=== PATIENT | male | born 1970 | race Caucasian/White ===

== ENCOUNTER 2018-06-16 09:08 | Emergency (ER) | payer OTHER ==
[2018-06-16 09:34] VITALS: BP 144/84; PULSE 80; TEMP 97.6; BMI 36.5
--- NOTE | 2018-06-16 09:43 | PDOC ---
Attending Attestation - Resident Resident Name: Ammy Paniagua - ED Attending Attestation I have performed the following: I have examined & evaluated the patient, The case was reviewed & discussed with the resident, I agree w/resident's findings & plan, Exceptions are as noted - HPI HPI: 06/16/18 09:55 48y M no pmhx presents sp fall 2 days ago from approx 5 feet, landing on his R shoulder/arm and R rib/flank pain. There was no head injury, loc, neck pain, back pain, numbness/tingling/weakness, leg pain, L arm pain. Pt statses his arm seems to hurt the most on the R shoulder and his R rib/flank area hurts when he mvoes/coughs. He denies any sob, fever/chills, n/v, abd pain. he has been taking OTC pain meds without significant improvement. He came in today as the pain did not seem to be getting any better after 2 days. GENERAL: The patient is awake, alert, and fully oriented, Nontoxic - in no acute distress. HEAD: Normocephalic, atraumatic. EYES: extraocular movements intact, sclera anicteric, conjunctiva clear. ENT: Normal voice, Moist mucous membranes. NECK: Normal range of motion, supple LUNGS: Breath sounds equal, clear to auscultation bilaterally. No wheezes, no rhonchi, no rales. HEART: Regular rate and rhythm, normal S1 and S2 without murmur, rub or gallop. ABDOMEN: Soft, nontender, No guarding, no rebound. . No CVA tenderness No ecchymosis noted to flank/abd/back. NEUROLOGICAL: No facial assymetry, Normal speech, PSYCH: Normal mood, normal affect. SKIN: Warm, Dry, normal turgor, Back: No midline tenderness to the cervical, thoracic or lumbar spine Musculoskelatal: normal passive ROM of his R shoulder/R elobw in all planes, + pain with AROM of his RUE. TTP to mid shaft R humerus. no focal tendernes to shoulder/elbow/forearm. No appreciable ecchymosis to extremity. FROM of hips, knees, ankles - No signs of ecchymosis, erythema, or crepitus noted on palpation extremities, chest wall, clavicals, ribs, back. - Physicial Exam PE: 06/16/18 10:55 see above - Medical Decision Making 06/16/18 10:54 xrays neg for fx of ribs/humers/shulder no signs of dislcoation possibel rotator cuff injury suspect rib contusion/arm contusion will give tramadol for pain will refer to PMD and ortho return precautions were discussed
--- NOTE | 2018-06-16 09:46 | PDOC ---
History of Present Illness - General Chief Complaint: Injury Stated Complaint: LEFT SHOULDER/ARM PAIN History Source: Patient - History of Present Illness Initial Comments: 06/16/18 09:40 48M w/ no significant pmhx presents today after a fall. Pt states this past Wednesday he was at work at the time on top of a generator when he slipped due to the wet surface because of the rain and fell 5 ft to the ground. Admits to landing on his R upper extremity and R side. Pt states he has only taken 2 of Ibuprofen with no relief. He complains of 9/10 pain in his RUE, with limited range of motion. He also admits to R anterior rib pain as a result from the fall. Denies head injury, loc, dizziness, lightheadedness, syncope, chest pain, sob, difficulty walking. PCP: Dr. Colin Past History - Past Medical History Allergies/Adverse Reactions: Allergies Allergy/AdvReac Type Severity Reaction Status Date / Time No Known Allergies Allergy Verified 06/16/18 09:15 Home Medications: Ambulatory Orders No Home Medications 0 dose .ROUTE UTDICT 02/13/13 Tramadol HCl 50 mg PO QID PRN #12 tablet MDD 4 06/16/18 CVA: No COPD: No Other medical history: LEFT SHOULDER FX - Suicide/Smoking/Psychosocial Hx Smoking Status: Yes Smoking History: Current every day smoker Years of Tobacco Use: 20 Number of Cigarettes Smoked Daily: 20 Information on smoking cessation initiated: Yes 'Breaking Loose' booklet given: 09/24/17 Hx Alcohol Use: Yes (SOCIAL) Drug/Substance Use Hx: No Substance Use Type: Alcohol Review of Systems - Review of Systems Able to Perform ROS?: Yes Is the patient limited Lithuanian proficient: No Constitutional: No: Chills, Fever HEENTM: No: Recent change in vision Respiratory: No: Shortness of Breath Cardiac (ROS): No: Chest Pain, Lightheadedness, Palpitations, Syncope, Chest Tightness ABD/GI: No: Constipated, Diarrhea : No: Dysuria, Flank Pain, Hematuria Musculoskeletal: Yes: Other (R anterior rib pain) Neurological: No: Headache, Numbness, Paresthesia, Tingling, Dizziness *Physical Exam - Vital Signs Last Vital Signs Temp Pulse Resp BP Pulse Ox 97.6 F 80 16 144/84 100 06/16/18 09:09 06/16/18 09:09 06/16/18 09:09 06/16/18 09:09 06/16/18 09:09 - Physical Exam Comments: 06/16/18 09:48 GEN: NAD. AAOx3. Resting comfortably, HEENT: AT/NC. WILL. EOMI. Moist mucus membranes. Lungs: CTA B/L. No wheezes noted. Heart: RRR. Normal S1, S2. No murmurs noted. Abd: Soft. Tender in RUQ. ND. +BS in all 4 Q's. MSK: No ecchymoses noted in posterior/anterior ribs. Ext: Limited active flexion and abduction in RUE. Tolerates passive ROM. No obvious deformities or ecchymoses in RUE. Neuro: Responds to commands. ED Treatment Course - Medications Given in the ED: ED Medications Discontinued Medications Generic Name Dose Route Start Last Admin Trade Name Freq PRN Reason Stop Dose Admin Oxycodone/Acetaminophen 2 combo 06/16/18 09:32 06/16/18 09:37 Percocet 5/325 - PO 06/16/18 09:33 2 combo ONCE ONE Administration Medical Decision Making - Medical Decision Making 06/16/18 09:52 48M w/ no significant pmhx presents with injury to his RUE s/p fall 2 days ago during work. -Pt has significant restriction of motion due to pain in the RUE as well as significant R rib tenderness. -Will obtain an Xray of the R shoulder and humerus. Will also get U/A to r/o possible trauma to kidney as he states he landed on his R side and is complaining of pain. 06/16/18 10:19 -U/A neg, unlikely renal trauma 06/16/18 10:31 -Xray of humerus, ribs, and shoulder unremarkable for fx. pending final read 06/16/18 11:56 -Xray of humerus, ribs, and shoulder neg on final read. -Will Rx Tramadol 50 mg for pain and recommend to take Tylenol and Advil as needed. Advised to follow up with PCP and ortho for further evaluation. Recommended to return to the ED if he has persistent pain, worsening abdominal pain, chest pain, shortness of breath. Case discussed with Dr. Knutson. -Ammy Paniagua, DO - PGY1 *DC/Admit/Observation/Transfer Diagnosis at time of Disposition: Muscle contusion Contusion of rib on right side Qualifiers: Encounter type: initial encounter Qualified Code(s): S20.211A - Contusion of right front wall of thorax, initial encounter - Discharge Dispostion Disposition: HOME Condition at time of disposition: Good Decision to Admit order: No - Prescriptions Prescriptions: Tramadol HCl 50 mg PO QID PRN #12 tablet MDD 4 PRN Reason: Pain - Referrals Referrals: Duong Colin MD [Primary Care Provider] - Miguel Cardenas [Non Staff, Medical] - - Patient Instructions Printed Discharge Instructions: How to Prevent Falls Additional Instructions: You were seen in the ED for complaints of right shoulder and rib pain after a fall. In the ED, x-ray imaging was done that did not show any acute pathologic fractures. There is no acute need for hospitalization at this time. You are being discharged home. Please follow up with your primary care physician, Dr. Colin, within 1 week. You can also make an appointment to see your orthopedic surgeon, Dr. Miguel Cardenas. Please take Tramadol 50 mg every 6 hours as needed for pain. You may also take [id number] Tylenol or Advil for pain. If you experience worsening right arm pain, new and persistent abdominal or flank pain, chest pain, or shortness of breath, please proceed to your nearest emergency room immediately. - Post Discharge Activity Forms/Work/School Notes: Back to Work
[2018-06-16 09:48] LABS: URINE APPEARANCE Clear; URINE BILIRUBIN Negative (NEGATIVE); URINE COLOR Yellow; URINE GLUCOSE (UA) Negative (NEGATIVE); URINE KETONE Negative (NEGATIVE); URINE LEUK ESTERASE Negative (NEGATIVE); URINE NITRITE Negative (NEGATIVE); URINE PROTEIN Negative (NEGATIVE); URINE UROBILINOGEN 0.2 (0.2-1.0)
[2018-06-16 10:17] LABS: EPI CELLS FEW /HPF; URINE BACTERIA NONE SEEN /hpf (NEGATIVE); URINE RBC 0-3 /hpf (0-3); URINE WBC 0-3 (0-2)
== END 2018-06-16 11:04 | disposition home or self-care (01) ==
LOC: FER 09:08
DX: S20.211A Contusion of right front wall of thorax, initial encounter (principal); T14.8XXA Other injury of unspecified body region, initial encounter; Y92.410 Unspecified street and highway as the place of occurrence of the external cause; F17.210 Nicotine dependence, cigarettes, uncomplicated; W17.89XA Other fall from one level to another, initial encounter; Y93.9 Activity, unspecified
CPT/HCPCS: 71101-TC-RT-FY; 73030-TC-RT-FY; 73060-TC-RT-FY; 81003; 81015; 99282-25

== ENCOUNTER 2020-06-24 17:46 | Emergency (ER) | payer BC | END 2020-06-24 17:51 | disposition home or self-care (01) | LOC: JVIRT 17:46 | DX: Z03.818 Encounter for observation for suspected exposure to other biological agents ruled out (principal); Z01.84 Encounter for antibody response examination | CPT/HCPCS: 36415; 86769; C9803; Q3014-GT; U0003 ==

== ENCOUNTER 2024-03-02 05:09 | Day surgery (SDC) | payer BC ==
[2024-03-01 07:41] VITALS: BMI 29.7
[2024-03-02 07:23] VITALS: RESP 18
[2024-03-02 08:41] VITALS: TEMP 97.6
[2024-03-02 09:46] LABS: BASO % 0.7 % (0-2.0); EOS % 1.5 % (0-4.5); HEMATOCRIT 34.9 % (35.4-49); HEMOGLOBIN 11.3 GM/dL (11.7-16.9); LYMPH % 28.8 % (8-40); MCH 26.1 pg (25.7-33.7); MCHC 32.2 g/dl (32.0-35.9); MEAN CELL VOLUME 80.9 fl (80-96); MONO % 6.1 % (3.8-10.2); NEUT % 62.9 % (42.8-82.8); PLATELET COUNT 271 10^3/uL (134-434); RBC 4.31 M/mm3 (4.00-5.60); WHITE BLOOD COUNT 8.8 K/mm3 (4.0-10.0)
[2024-03-02 10:02] VITALS: BP 132/72; PULSE 63
[2024-03-02 10:18] LABS: POTASSIUM 4.4 mmol/L (3.5-5.1)
[2024-03-02 10:23] LABS: CALCIUM 9.2 mg/dL (8.5-10.1)
[2024-03-02 10:24] LABS: ALBUMIN 3.6 g/dl (3.4-5.0); BLOOD UREA NITROGEN 10.2 mg/dL (7-18)
[2024-03-02 10:28] LABS: BILIRUBIN,TOTAL 0.5 mg/dL (0.2-1); TOT PROT 6.9 g/dl (6.4-8.2)
[2024-03-02 10:28] LABS: IRON SERUM 18 ug/dL (50-175); TOTAL IRON BINDING CAPACITY 434 ug/dL (250-450)
== END 2024-03-02 10:05 | disposition home or self-care (01) ==
LOC: JASU-ENDO 05:09
PROVIDERS: ATTEND Internal Medicine Gastroenterology
PROC: 0DBL8ZX Excision of Transverse Colon, Via Natural or Artificial Opening Endoscopic, Diagnostic (ICD-10-PCS; 2024-03-02)
PROC: 0DBH8ZX Excision of Cecum, Via Natural or Artificial Opening Endoscopic, Diagnostic (ICD-10-PCS; 2024-03-02)
PROC: 0DBK8ZX Excision of Ascending Colon, Via Natural or Artificial Opening Endoscopic, Diagnostic (ICD-10-PCS; principal; 2024-03-02 08:00)
DX: Z12.11 Encounter for screening for malignant neoplasm of colon (principal); D12.3 Benign neoplasm of transverse colon; D12.0 Benign neoplasm of cecum; K57.30 Diverticulosis of large intestine without perforation or abscess without bleeding; K64.8 Other hemorrhoids; C19 Malignant neoplasm of rectosigmoid junction
CPT/HCPCS: 36415; 80053; 82378; 82728; 83540; 83550; 85025; 88305-TC; 88341-TC; 88342-TC

== ENCOUNTER 2024-03-09 04:27 | Day surgery (SDC) | payer BC ==
[2024-03-08 10:09] VITALS: BMI 29.6
[2024-03-09 09:12] VITALS: TEMP 97.8
[2024-03-09 09:47] VITALS: BP 127/69; PULSE 62; RESP 12
== END 2024-03-09 09:50 | disposition home or self-care (01) ==
LOC: JASU-ENDO 04:27
PROVIDERS: ATTEND Internal Medicine Gastroenterology
PROC: 0DB68ZX Excision of Stomach, Via Natural or Artificial Opening Endoscopic, Diagnostic (ICD-10-PCS; 2024-03-09)
PROC: 0DB38ZX Excision of Lower Esophagus, Via Natural or Artificial Opening Endoscopic, Diagnostic (ICD-10-PCS; principal; 2024-03-09 08:30)
DX: K21.00 Gastro-esophageal reflux disease with esophagitis, without bleeding (principal); K29.50 Unspecified chronic gastritis without bleeding; K44.9 Diaphragmatic hernia without obstruction or gangrene; K22.70 Barrett's esophagus without dysplasia; Z98.0 Intestinal bypass and anastomosis status
CPT/HCPCS: 88305-TC; 88342-TC